=== PATIENT | female | born 1980 | race Caucasian/White ===

== ENCOUNTER → 2018-07-20 14:46 | Outpatient (CLI) | payer OTHER, SELFPAY ==
--- NOTE | 2018-07-20 14:50 | DI.RAD.S_ITS ---
PROCEDURE: XR FINGER RT MIN 2V INDICATIONS: growth on 3rd digit TECHNIQUE: AP hand, 2 views of the right finger(s) acquired. COMPARISON: None. FINDINGS: Bones: No fractures or dislocations. No suspicious bony lesions. Soft tissues: No suspicious soft tissue calcifications. IMPRESSION: No osseous abnormality. Soft tissue mass at the level of the middle phalanx of the right middle finger. Further evaluation could be performed with contrast-enhanced MRI. Dictated by: Oral Mackenzie M.D. on 07/20/2018 at 16:09 Approved by: Oral Mackenzie M.D. on 07/20/2018 at 16:12
== END ==
PROVIDERS: Visit Provider Family Medicine
DX: R22.31 Localized swelling, mass and lump, right upper limb (principal)
CPT/HCPCS: 73140